=== PATIENT | female | born 1965 | race Caucasian/White ===

== ENCOUNTER 2019-12-25 11:20 | Emergency (ER) | payer OTHER ==
[~2019-12-25] VITALS: Ht 172.7 cm; Wt 59.0 kg
[2019-12-25] MEDS ORDERED: NOHOMEMEDICATIONS (11:41)
[2019-12-25 11:44] LABS: EOSINOPHILS 0.4 % (0.0-3.0); HEMATOCRIT 43.2 % (37.0-47.0); HEMOGLOBIN 14.6 gm/dL (12.0-15.0); LYMPHOCYTES 18.9 % (24.0-44.0); MCHC 33.9 g/dL (28.0-37.0); MCV 91.5 fL (80.0-100.0); MONOCYTES 5.1 % (1.0-8.0); PLATELET COUNT 256 thou/uL (150-400); POLYS 74.6 % (36.0-66.0); RBC 4.72 mil/uL (4.20-5.00); RDW 13.5 % (10.5-14.5); WBC 6.8 thou/uL (4.0-11.0)
[2019-12-25 11:48] LABS: URINE BILIRUBIN NEGATIVE (Negative); URINE BLOOD TRACE (Negative); URINE CLARITY CLEAR; URINE COLOR YELLOW; URINE GLUCOSE-RANDOM* NEGATIVE (Negative); URINE KETONES NEGATIVE (Negative); URINE NITRITE-REFLEX NEGATIVE (Negative); URINE PROTEIN (DIPSTICK) NEGATIVE (Negative); URINE SPECIFIC GRAVITY <= 1.005 (1.005-1.035); URINE UROBILINOGEN 0.2 E.U./dl (0.2-1.0)
[2019-12-25 11:56] LABS: ANION GAP 8 mmol/L (7-16); BUN 16 mg/dL (7-18); CALCIUM 9.2 mg/dL (8.5-10.1); CHLORIDE 102 mmol/L (98-107); CO2 28 mmol/L (21-32); GLUCOSE 98 mg/dL (74-106); POTASSIUM 3.8 mmol/L (3.5-5.1); SODIUM 138 mmol/L (136-145)
[2019-12-25 12:01] LABS: URINE LEUKOCYTES-REFLEX 1+ (Negative)
[2019-12-25 12:06] LABS: ALBUMIN 4.4 g/dL (3.4-5.0); SGOT 16 U/L (15-37); SGPT 19 U/L (30-65); TOTAL BILIRUBIN 0.5 mg/dL (0.2-1.0); TOTAL PROTEIN 7.5 g/dL (6.4-8.2); TROPONIN-I <0.06 ng/mL (<0.06)
[2019-12-25 12:41] LABS: CASTS None Seen /LPF (None Seen); CRYSTALS None Seen /LPF (None Seen); SQUAMOUS 4-10 Moderate /LPF (0-3); URINE RBC 0-2 Rare /HPF (0-2)
[2019-12-25 12:42] LABS: BACTERIA-REFLEX 1-9 Few /HPF (None Seen); URINE WBC-REFLEX 6-15 Few /HPF (0-5)
[2019-12-25 12:49] VITALS: BP 133/75
--- NOTE | 2019-12-26 10:10 | EKG ---
[facility] [place] [address] ELECTROCARDIOGRAM REPORT Name: JOSE SMITH Room #: DEP [facility]#: [id number] Admission: 12/25/19 Attend Phys: Discharge: 12/25/19 Date of : 67 Report #: [id number] THIS REPORT FOR: cc: CASTILLO - Olga family physician/PCP FAM - Olga family physician/PCP Emil Saravia MD ~ THIS REPORT FOR: //name// [facility] ED Test Date: 2019-12-25 Test Time: 11:44:11 Pat Name: JOSE SMITH Department: Room: Gender: F [employer]: : 1965 Requested By: David Bryant Order Number: [id number] MD: Emil Saravia Measurements Intervals [place] Rate: 65 P: 44 [place]: 158 QRS: 93 QRSD: 113 T: 36 QT: 418 QTc: 435 Interpretive Statements Sinus rhythm Ventricular premature complex Borderline intraventricular conduction delay Low voltage, extremity leads No previous ECG available for comparison Electronically Signed On 12-26-2019 10:09:27 CDT by Emil Saravia [email or web address] <ELECTRONICALLY SIGNED> By: Emil Saravia MD 12/26/19 1009 1144 1144 MD SHARAN Moreno
== END 2019-12-25 13:03 | disposition home or self-care (01) ==
LOC: ER 11:20
PROVIDERS: Emergency Medicine
DX: R53.1 Weakness (principal); R42 Dizziness and giddiness; F41.9 Anxiety disorder, unspecified; R20.0 Anesthesia of skin; R20.2 Paresthesia of skin; F17.210 Nicotine dependence, cigarettes, uncomplicated